=== PATIENT | female | born 1945 | race Caucasian/White ===

== ENCOUNTER 2020-12-17 21:16 | Observation (INO) | payer MEDICARE ==
[~2020-12-17] VITALS: Ht 157.5 cm; Wt 66.0 kg
[2020-12-17] MEDS ORDERED: normal saline 1000ml 1,000 ML IV ONE (21:25)
[2020-12-17] MEDS ORDERED: tranexamic acid 1gm/0.7% sal. 100 ML IV ONE (21:30)
[2020-12-17 21:47] LABS: BASOPHILS % (AUTO) 0.5 % (0-1); EOSINOPHILS # (AUTO) 0.2 X10'3 (0-0.9); EOSINOPHILS % (AUTO) 2.6 % (0-6); HEMOGLOBIN 11.9 g/dl (12.0-16.0); LYMPHOCYTES # (AUTO) 2.9 X10'3 (1.1-4.8); LYMPHOCYTES % (AUTO) 39.8 % (21-51); MEAN CORPUSCULAR HEMOGLOBIN 30.8 PG (27.0-31.0); MEAN CORPUSCULAR VOLUME 90.6 FL (78-98); MEAN PLATELET VOLUME 7.1 FL (7.4-10.4); MONOCYTES # (AUTO) 0.4 X10'3 (0-0.9); MONOCYTES % (AUTO) 5.4 % (2-12); NEUTROPHILS # (AUTO) 3.7 X10'3 (1.8-7.7); NEUTROPHILS % (AUTO) 51.7 % (42-75); PLATELET COUNT 334 X10'3 (140-440); RED BLOOD COUNT 3.86 X10'6 (4.20-5.60); RED CELL DISTRIBUTION WIDTH 13.7 % (11.5-14.5); WHITE BLOOD COUNT 7.2 X10'3 (4.5-11.0)
[2020-12-17 21:53] LABS: PARTIAL THROMBOPLASTIN TIME 21 SECONDS (22-32)
[2020-12-17 22:05] LABS: ALANINE AMINOTRANSFERASE 35 U/L (12-78); ALBUMIN 3.9 G/DL (3.4-5.0); ALBUMIN/GLOBULIN RATIO 1.4 (1.1-1.5); ALKALINE PHOSPHATASE 60 IU/L (46-116); ANION GAP 11 (8-16); ASPARTATE AMINO TRANSFERASE 19 U/L (10-37); BILIRUBIN,TOTAL 0.2 MG/DL (0.1-1.0); BLOOD UREA NITROGEN 17 MG/DL (7-18); BUN/CREATININE RATIO 24.6 (6.6-38.0); CALCIUM 9.1 MG/DL (8.5-10.1); CHLORIDE 106 MMOL/L (99-107); CREATININE 0.69 MG/DL (0.40-0.90); GLUCOSE 137 MG/DL (70-104); LIPASE 126 U/L (73-393); MAGNESIUM 1.8 MG/DL (1.5-2.4); POTASSIUM 3.4 MMOL/L (3.5-5.1); SODIUM 145 MMOL/L (135-145); TOTAL CARBON DIOXIDE 28.3 MMOL/L (24-32); TOTAL PROTEIN 6.7 G/DL (6.4-8.2); eGFR 83 ML/MIN
--- NOTE | 2020-12-17 22:40 | NUR ---
TXA INFUSING AND MIVF NS AT 150/ML HR. AT BEDSIDE. VSS. PT WITH SLIGHT LOW ABD DISCOMFORT REPORTS FEELS LIKE CRAMPING. NOW AWAITING HOSPITALIAST. MED REC COMPLETED. PT ONLY TAKES OTC OMEPROZOLE AND LOSARTAN.
[2020-12-17] MEDS ORDERED: LOSA25TA41 PO (22:42)
[2020-12-17] MEDS ORDERED: OMEP40CA13 PO (22:42)
--- NOTE | 2020-12-17 23:41 | NUR ---
SBA FOR PT TO GET UP TO BSC TO VOID. AWAITING HOSPITALIST. PTS , PAULO, REMAINS AT BEDSIDE. VSS. PT WITH NO DIZZINESS WHEN GETTING UP. REPROTS SHE STILL FEELS WEAK AND HER BELLY IS STILL "GURGLING".
[2020-12-17] MEDS ORDERED: ACET-1025 PO (23:43)
[2020-12-18] MEDS ORDERED: magnesium hydroxide 30ml (MOM) UD suspension PO PRN (00:30)
[2020-12-18] MEDS ORDERED: mag hydrox/Alum hydrox/simeth 30ml oral suspension PO PRN (00:30)
[2020-12-18] MEDS ORDERED: ondansetron/PF 4mg/2ml inj IV PRN (00:30)
[2020-12-18] MEDS ORDERED: acetaminophen 325mg tablet PO PRN (00:30)
[2020-12-18] MEDS: normal saline 1000ml 1,000 ML IV SCH ×3 (02:07→20:30)
--- NOTE | 2020-12-18 02:17 | NUR ---
PT GIVEN TYLENOL FOR HER CHRONIC BACK PAIN (STENOSIS). STATES SHE TAKES 1000 MG HS. AWAITING IPA. HAS GONE HOME FOR THE NIGHT. VSS. PT UP TO BSC INDEPENDANTLY AND WITHOUT DIZZINESS.
--- NOTE | 2020-12-18 05:10 | NUR ---
PT ARRIVED FROM ER AND HAS BEEN ORIENTED TO THE ROOM. VSS. RECEIVED REPORT FROM ALIE PRIOR TO PT'S ARRIVAL.
[2020-12-18 05:46] VITALS: BP 120/56
--- NOTE | 2020-12-18 06:27 | NUR ---
Problems reprioritized. Patient report given, questions answered & plan of care reviewed with MARITZA BRANDT.
[2020-12-18 07:15] VITALS: BP 120/56
[2020-12-18 09:05] LABS: BASOPHILS % (AUTO) 0.7 % (0-1); EOSINOPHILS # (AUTO) 0.1 X10'3 (0-0.9); EOSINOPHILS % (AUTO) 1.6 % (0-6); HEMATOCRIT 35.6 % (35.0-45.0); HEMOGLOBIN 11.9 g/dl (12.0-16.0); LYMPHOCYTES # (AUTO) 1.7 X10'3 (1.1-4.8); LYMPHOCYTES % (AUTO) 33.9 % (21-51); MEAN CORPUSCULAR HEMOGLOBIN 30.1 PG (27.0-31.0); MEAN CORPUSCULAR HGB CONC 33.3 g/dL (33.0-36.5); MEAN CORPUSCULAR VOLUME 90.4 FL (78-98); MEAN PLATELET VOLUME 7.3 FL (7.4-10.4); MONOCYTES # (AUTO) 0.3 X10'3 (0-0.9); MONOCYTES % (AUTO) 6.1 % (2-12); NEUTROPHILS # (AUTO) 2.9 X10'3 (1.8-7.7); NEUTROPHILS % (AUTO) 57.7 % (42-75); PLATELET COUNT 333 X10'3 (140-440); RED BLOOD COUNT 3.94 X10'6 (4.20-5.60); RED CELL DISTRIBUTION WIDTH 14.1 % (11.5-14.5); WHITE BLOOD COUNT 4.9 X10'3 (4.5-11.0)
[2020-12-18 11:17] VITALS: BP 148/68
[2020-12-18] MEDS: losartan 25mg tablet PO SCH (17:11)
--- NOTE | 2020-12-18 18:07 | NUR ---
Problems reprioritized. Patient report given, questions answered & plan of care reviewed with Pradeep RN.
--- NOTE | 2020-12-18 18:30 | NUR ---
Patient in room [facility] 4014. I have received report from Dejon SALAS and had the opportunity to ask questions and assume patient care.
[2020-12-18 22:00] VITALS: BP 139/59
[2020-12-19 06:29] LABS: BASOPHILS % (AUTO) 0.9 % (0-1); EOSINOPHILS # (AUTO) 0.2 X10'3 (0-0.9); EOSINOPHILS % (AUTO) 3.3 % (0-6); HEMATOCRIT 35.5 % (35.0-45.0); LYMPHOCYTES # (AUTO) 2.4 X10'3 (1.1-4.8); LYMPHOCYTES % (AUTO) 41.8 % (21-51); MEAN CORPUSCULAR HEMOGLOBIN 30.5 PG (27.0-31.0); MEAN CORPUSCULAR HGB CONC 33.7 g/dL (33.0-36.5); MEAN CORPUSCULAR VOLUME 90.4 FL (78-98); MEAN PLATELET VOLUME 7.3 FL (7.4-10.4); MONOCYTES # (AUTO) 0.3 X10'3 (0-0.9); MONOCYTES % (AUTO) 5.7 % (2-12); NEUTROPHILS # (AUTO) 2.8 X10'3 (1.8-7.7); NEUTROPHILS % (AUTO) 48.3 % (42-75); PLATELET COUNT 346 X10'3 (140-440); RED BLOOD COUNT 3.93 X10'6 (4.20-5.60); WHITE BLOOD COUNT 5.8 X10'3 (4.5-11.0)
[2020-12-19] MEDS: normal saline 1000ml 1,000 ML IV SCH (06:30)
--- NOTE | 2020-12-19 06:33 | NUR ---
Problems reprioritized. Patient report given, questions answered & plan of care reviewed with Chris SALAS.
[2020-12-19] MEDS: losartan 25mg tablet PO SCH (07:15)
[2020-12-19] MEDS ORDERED: pantoprazole 40mg Tablet.DR PO SCH (07:30)
--- NOTE | 2020-12-20 14:23 | NUR ---
CASE MANAGEMENT DISCHARGE FOLLOW UP: T/c to pt, no answer, left message requesting callback. Addendum: 12/24/20 at 1051 by Renee Villegas RN 12/24/2020@0830 Received VM from patient, left 12/20@2000, stating that she is "doing just fine" and that she appreciated the hospital and care received.
== END 2020-12-19 09:20 | disposition home or self-care (01) ==
LOC: ER 21:16 → ED HOLD 12-18 00:28 → ORTHO 4S 12-18 04:56
PROVIDERS: ADMIT Internal Medicine; ATTEND Internal Medicine
DX: K92.1 Melena (principal); I10 Essential (primary) hypertension; K21.9 Gastro-esophageal reflux disease without esophagitis; I25.10 Atherosclerotic heart disease of native coronary artery without angina pectoris; Z86.010 Personal history of colon polyps; Z90.710 Acquired absence of both cervix and uterus; Z90.49 Acquired absence of other specified parts of digestive tract; Z79.899 Other long term (current) drug therapy; Z88.0 Allergy status to penicillin; Z91.040 Latex allergy status
CPT/HCPCS: 36415; 80053; 83690; 83735; 84484; 85025; 85610; 85730; 86885; 86900; 86901; 87081; 93005; 96361; 96365; 99284; G0378; J7030

== ENCOUNTER 2021-05-31 10:20 | Emergency (ER) | payer MEDICARE ==
[~2021-05-31] VITALS: Ht 157.5 cm; Wt 60.0 kg
[~2021-05-31 10:20] MED LIST: ACET-1025 PO; LOSA25TA41 PO; OMEP40CA21 PO
[2021-05-31 10:43] VITALS: BP 156/72
[2021-05-31] MEDS ORDERED: ACET-1025 PO (14:57)
== END 2021-05-31 16:09 | disposition home or self-care (01) ==
LOC: ER 10:21
DX: M25.532 Pain in left wrist (principal); I10 Essential (primary) hypertension; K21.9 Gastro-esophageal reflux disease without esophagitis; Z90.49 Acquired absence of other specified parts of digestive tract; Z88.0 Allergy status to penicillin; Z91.040 Latex allergy status; Z79.899 Other long term (current) drug therapy
CPT/HCPCS: 29125; 73100; 99283

== ENCOUNTER 2023-03-21 22:18 | Emergency (ER) | payer MEDICARE ==
[~2023-03-21] VITALS: Ht 157.5 cm; Wt 65.9 kg
[2023-03-21 22:42] VITALS: TEMP 97.8
[2023-03-21 22:48] LABS: BASOPHILS % (AUTO) 0.7 % (0-1); EOSINOPHILS # (AUTO) 0.3 X10'3 (0-0.9); EOSINOPHILS % (AUTO) 4.7 % (0-6); HEMATOCRIT 37.9 % (35.0-45.0); HEMOGLOBIN 12.7 g/dl (12.0-16.0); LYMPHOCYTES # (AUTO) 2.6 X10'3 (1.1-4.8); LYMPHOCYTES % (AUTO) 37.3 % (21-51); MEAN CORPUSCULAR HEMOGLOBIN 29.3 PG (27.0-31.0); MEAN CORPUSCULAR HGB CONC 33.5 g/dL (33.0-36.5); MEAN CORPUSCULAR VOLUME 87.6 FL (78-98); MEAN PLATELET VOLUME 7.5 FL (7.4-10.4); MONOCYTES # (AUTO) 0.5 X10'3 (0-0.9); MONOCYTES % (AUTO) 7.5 % (2-12); NEUTROPHILS # (AUTO) 3.5 X10'3 (1.8-7.7); NEUTROPHILS % (AUTO) 49.8 % (42-75); PLATELET COUNT 303 X10'3 (140-440); RED BLOOD COUNT 4.33 X10'6 (4.20-5.60); RED CELL DISTRIBUTION WIDTH 13.7 % (11.5-14.5); WHITE BLOOD COUNT 6.9 X10'3 (4.5-11.0)
[2023-03-21 23:44] LABS: ALANINE AMINOTRANSFERASE 35 U/L (12-78); ALBUMIN/GLOBULIN RATIO 1.3 (1.1-1.5); ALKALINE PHOSPHATASE 66 IU/L (46-116); ANION GAP 12 (8-16); ASPARTATE AMINO TRANSFERASE 20 U/L (10-37); BILIRUBIN,TOTAL 0.3 MG/DL (0.1-1.0); BLOOD UREA NITROGEN 22 MG/DL (7-18); BUN/CREATININE RATIO 28.6 (10.0-20.0); CALCIUM 9.5 MG/DL (8.5-10.1); CHLORIDE 105 MMOL/L (99-107); CREATININE 0.77 MG/DL (0.40-0.90); GLUCOSE 115 MG/DL (70-104); POTASSIUM 3.8 MMOL/L (3.5-5.1); SODIUM 141 MMOL/L (135-145); TOTAL CARBON DIOXIDE 24.3 MMOL/L (24-32); TOTAL PROTEIN 7.1 G/DL (6.4-8.2); eGFR 73 ML/MIN
[2023-03-22 04:43] VITALS: BP 155/68; PULSE 58; RESP 16; O2SAT 96
== END 2023-03-22 04:45 | disposition home or self-care (01) ==
LOC: ER 22:19
DX: R07.9 Chest pain, unspecified (principal); I10 Essential (primary) hypertension; R51.9 Headache, unspecified; K21.9 Gastro-esophageal reflux disease without esophagitis; Z90.49 Acquired absence of other specified parts of digestive tract; Z88.0 Allergy status to penicillin; Z91.040 Latex allergy status; Z79.899 Other long term (current) drug therapy; Z79.1 Long term (current) use of non-steroidal anti-inflammatories (NSAID); Z79.2 Long term (current) use of antibiotics
CPT/HCPCS: 36415; 71045; 80053; 83880; 84484; 85025; 93005; 99285

== ENCOUNTER 2024-10-24 09:06 | Emergency (ER) | payer OTHER ==
[~2024-10-24] VITALS: Ht 157.5 cm; Wt 64.8 kg
[~2024-10-24 09:06] MED LIST changes: +ASPI-1071 PO; +ATOR20TA66 PO; +CARV-164 PO
[2024-10-24] MEDS: aspirin 81mg tab.chew PO ONE (09:54)
[2024-10-24 10:09] LABS: BASOPHILS % (AUTO) 0.5 % (0-1); EOSINOPHILS # (AUTO) 0.1 X10'3 (0-0.9); EOSINOPHILS % (AUTO) 1.5 % (0-6); HEMATOCRIT 41.9 % (35.0-45.0); LYMPHOCYTES % (AUTO) 32.7 % (21-51); MEAN CORPUSCULAR HEMOGLOBIN 29.4 PG (27.0-31.0); MEAN CORPUSCULAR HGB CONC 33.4 g/dL (33.0-36.5); MEAN CORPUSCULAR VOLUME 87.9 FL (78-98); MEAN PLATELET VOLUME 7.9 FL (7.4-10.4); MONOCYTES # (AUTO) 0.4 X10'3 (0-0.9); MONOCYTES % (AUTO) 6.2 % (2-12); NEUTROPHILS # (AUTO) 3.6 X10'3 (1.8-7.7); NEUTROPHILS % (AUTO) 59.1 % (42-75); PLATELET COUNT 283 X10'3 (140-440); RED BLOOD COUNT 4.76 X10'6 (4.20-5.60); RED CELL DISTRIBUTION WIDTH 14.1 % (11.5-14.5); WHITE BLOOD COUNT 6.1 X10'3 (4.5-11.0)
[2024-10-24 10:45] LABS: ALANINE AMINOTRANSFERASE 24 U/L (12-78); ALBUMIN 4.4 G/DL (3.4-5.0); ALBUMIN/GLOBULIN RATIO 1.2 (1.1-1.5); ALKALINE PHOSPHATASE 64 IU/L (46-116); ANION GAP 11 (8-16); ASPARTATE AMINO TRANSFERASE 20 U/L (10-37); BILIRUBIN,TOTAL 0.8 MG/DL (0.1-1.0); BLOOD UREA NITROGEN 15 MG/DL (7-18); BUN/CREATININE RATIO 25.9 (10.0-20.0); CALCIUM 9.1 MG/DL (8.5-10.1); CHLORIDE 106 MMOL/L (99-107); CREATININE 0.58 MG/DL (0.40-0.90); GLUCOSE 107 MG/DL (70-104); POTASSIUM 3.6 MMOL/L (3.5-5.1); SODIUM 144 MMOL/L (135-145); eCRCL 62 ML/MIN; eGFR > 90 ML/MIN
[2024-10-24 10:52] LABS: PRO BRAIN NATRIURETIC PEPTIDE 366 PG/ML (0-450)
[2024-10-24] MEDS ORDERED: NITR0.4T51 SL (18:54)
[2024-10-24] MEDS ORDERED: ASPI81TA52 PO (18:54)
[2024-10-24] MEDS: acetaminophen 325mg tablet PO ONE (19:03)
[2024-10-24 19:08] VITALS: BP 140/97; PULSE 62; RESP 14; TEMP 98; O2SAT 100
== END 2024-10-24 19:10 | disposition home or self-care (01) ==
LOC: ER 09:06
DX: R07.9 Chest pain, unspecified (principal); E78.00 Pure hypercholesterolemia, unspecified; I10 Essential (primary) hypertension; K21.9 Gastro-esophageal reflux disease without esophagitis; Z88.0 Allergy status to penicillin; Z90.49 Acquired absence of other specified parts of digestive tract; Z79.82 Long term (current) use of aspirin
CPT/HCPCS: 36415; 71045; 80053; 83880; 84484; 85025; 93005; 99285

== ENCOUNTER 2025-06-17 21:41 | Emergency (ER) | payer OTHER ==
[~2025-06-17] VITALS: Ht 157.5 cm; Wt 67.6 kg
--- NOTE | 2025-06-17 22:16 | Physician Documentation ---
History of Present Illness ~ Chief Complaint: Headache Stated Complaint: HEADACHE WITH HIGH BP Time Seen by MD: 22:10 Primary Medical Doctor: Bart Olivas HPI 79-year-old female presenting with a headache. The patient reportedly had an MRI recently that showed an aneurysm in her brain. This was an outpatient study and is not in our system. She tells me that she developed a headache this evening. She states it is left- sided. She has associated intermittent dizziness. She also reports a history of peripheral vertigo, and states that the dizziness is worse with certain head positional changes. By time of my evaluation, her headache has improved. She states that it has moved to the right side of her head. She also tells me that she has macular degeneration in the right eye and has been getting injections to her eye. No vomiting. No tingling numbness weakness in her extremities. No fevers or other infectious type symptoms. No head injury. No history of migraines or other significant headache types. She did take Tylenol. Medication Reconciliation Allergies: Coded Allergies: Penicillins (Verified Allergy, Unknown, 10/24/24) latex (Verified Adverse Reaction, Intermediate, RASH TO SKIN, 10/24/24) Scheduled Aspirin (Ecotrin*), 1 TAB PO DAILY Atorvastatin Calcium (Atorvastatin Calcium), 20 MG PO DAILY Carvedilol (Carvedilol), 3.125 MG PO BID Losartan Potassium (Losartan Potassium), 50 MG PO DAILY Meclizine Hcl (Meclizine Hcl), 1 TAB PO Q8H Omeprazole (Prilosec), 20 MG PO DAILY, (Reported) Scheduled PRN Acetaminophen (Tylenol Extra Strength), 1 TAB PO Q8H PRN for mild to moderate pain 1-6 Past Medical History Past Medical History: *CARDIOVASCULAR*, High Cholesterol, Hypertension, GERD Past Surgical History: cholecystectomy, other Alcohol Use: None Drug Use: none Lives with: Spouse Lives In: Home Occupation: retired Review of Systems Constitutional: Denies: fever Neurological: Reports: headache, dizziness Physical Exam Vital Signs: Temperature: 98.4, Heart Rate: 94, Respiratory Rate: 16, BP: 199/70, Pulse Oximetry: 98, Weight: 67.600 Oxygen Flow Rate: 0 Physical Exam General: This is a pleasant and overall well-appearing elderly woman, at bedside HEENT: Atraumatic, oropharynx is moist Heart: Regular rate and rhythm, normal-appearing peripheral perfusion Lungs: normal work of breathing, normal oxygen saturation on room air Neuro: Alert and oriented, cranial nerves 2-12 appear grossly intact except for some mild reported visual changes to the right eye which are not acute. No facial droop. Speech is clear. Normal strength and sensation all 4 extremities. Psychiatric: Appears mildly anxious about her condition, but is cooperative with exam Progress Results/Orders Results/Orders Orders - ALESIA MELENDEZ MD Ct Head (06/17/25 22:20) Cta Neck/Head (06/17/25 22:30) Completed Orders - ALESIA MELENDEZ MD Ct Head (06/17/25 22:20) Cta Neck/Head (06/17/25 22:30) Cbc/Diff (06/17/25 22:20) BMP (06/17/25 22:20) PTT (06/17/25 22:20) Pt Inr (06/17/25 22:20) Meclizine Tablets (Antivert Tablet) (06/18/25 00:30) Vital Signs 06/17/25 06/17/25 06/17/25 06/17/25 21:43 22:02 22:02 22:46 Temp 98.4 Pulse 94 84 91 Resp 16 18 16 26 B/P (MAP) 199/70 188/81 (116) 153/61 (91) Pulse Ox 98 97 99 O2 Flow Rate 0 0 0 06/18/25 00:18 Pulse 84 Resp 18 B/P (MAP) 138/76 (96) Pulse Ox 98 Laboratory Tests Test 06/17/25 22:12 White Blood Count 7.3 Red Blood Count 4.27 Hemoglobin 12.6 Hematocrit 37.4 Mean Corpuscular Volume 87.6 Mean Corpuscular Hemoglobin 29.4 Mean Corpuscular Hemoglobin Concent 33.6 Red Cell Distribution Width 13.6 Platelet Count 346 Mean Platelet Volume 7.7 Neutrophils (%) (Auto) 50.6 Lymphocytes (%) (Auto) 38.8 Monocytes (%) (Auto) 7.4 Eosinophils (%) (Auto) 2.5 Basophils (%) (Auto) 0.7 Neutrophils # (Auto) 3.7 Lymphocytes # (Auto) 2.8 Monocytes # (Auto) 0.5 Eosinophils # (Auto) 0.2 Basophils # (Auto) 0.1 CBC Comment Prothrombin Time 10.4 INR International Normalized Ratio 1.0 Activated Partial Thromboplast Time 25 Coagulation Comments Sodium Level 142 Potassium Level 3.5 Chloride Level 105 Carbon Dioxide Level 29.6 Anion Gap 7 L Blood Urea Nitrogen 23 H Creatinine 0.70 Estimated GFR/1.73 m2 81 BUN/Creatinine Ratio 32.9 H Glucose Level 133 H Calcium Level 8.8 Albumin 3.8 Chemistry Comments EKG/XRAY/CT/US/VASC/MRI CT : Impression I personally interpreted the CT scan, and this shows no acute intracranial hemorrhage. Radiology report says no large aneurysm Medical Decision Making Additional information obtaine: N/A Findings na Differential Dx:Considerations: Include: SHEPHERD-Cluster, SHEPHERD-Migraine, SHEPHERD- Hypertensive, SHEPHERD-Muscular contraction, CVA, Hemorrhage-Subarachnoid Additional Comment The patient presents with a headache. She reports a history of recent MRI that showed an aneurysm. On my exam she does not have any significant focal neurologic deficits. CT scan shows no intracranial hemorrhage. CTA without any acute vascular changes, in the radiology report does not remark on an aneurysm. Overall, no dangerous cause identified for her symptoms. She was given a dose of meclizine for her peripheral vertigo. She has outpatient follow-up already in place for all of her chronic issues including her eye, vertigo, and possible aneurysm on the MRI. I feel she is safe for discharge home at this time. Return precautions given. Departure Time of Disposition: 00:48 Disposition: 01 HOME / SELF CARE / HOMELESS Impression: Primary Impression: Headache Condition: Stable Discharge Instructions: Headache Referrals: NO PRIMARY CARE PROVIDER (PCP) Prescriptions Meclizine Hcl (MECLIZINE HCL) 12.5 Mg Tablet 1 TAB PO Q8H for dizziness for 10 Days, #30 TAB 0 Refills Prov: ALESIA MELENDEZ MD 06/18/25 Education Educated: Patient, Family Educated regarding: diagnosis, treatment, need for follow up Signature Scribe Signature: na Attestation: ALESIA Reyes MD Jun 17, 2025 22:16
[2025-06-17 22:38] LABS: MEAN PLATELET VOLUME 7.7 FL (7.4-10.4); RED CELL DISTRIBUTION WIDTH 13.6 % (11.5-14.5)
[2025-06-17 22:42] LABS: CREATININE 0.70 MG/DL (0.40-0.90); TOTAL CARBON DIOXIDE 29.6 MMOL/L (24-32); eCRCL 51 ML/MIN; eGFR 81 ML/MIN
--- NOTE | 2025-06-17 22:45 | RADIOLOGY REPORT ---
CT CT HEAD INDICATION: HEADACHE, HX OF ANEURYSM, HIGH BP COMPARISON: None TECHNIQUE: CT of the head without intravenous contrast. RADIATION DOSE: CTDIvol: mGy, DLP: mGy*cm FINDINGS: No evidence of intracranial hemorrhage, infarct, extra-axial collection, mass effect, midline shift, herniation or hydrocephalus. Ventricles, sulci and cisterns are normal. Visualized paranasal sinuses and mastoid air cells are clear. Soft tissues and osseous structures are unremarkable. IMPRESSION: No intracranial abnormality identified.
[2025-06-17 22:47] LABS: APTT 25 SECONDS (22-32); INR 1.0 INR
--- NOTE | 2025-06-18 00:38 | RADIOLOGY REPORT ---
INDICATION: severe headache, hx aneurysm COMPARISON: CT CT HEAD on DOS: 06/17/25 TECHNIQUE: CTA head without and with intravenous contrast. CTA neck with intravenous contrast. 3D image postprocessing was performed on a dedicated workstation and images were used for interpretation and reporting. Radiation Dose Information: CT Dose: CTDI volume is 33.14 mGy. Dose-length product is 913.76 mGy*cm FINDINGS: CT head: There is no evidence of acute intracranial hemorrhage, extra-axial collection, mass effect, midline shift, herniation or hydrocephalus. The ventricles, sulci and cisterns are age appropriate. The noland-white differentiation is intact. The visualized paranasal sinuses and mastoid air cells are clear. The surrounding soft tissues and osseous structures are unremarkable. CTA head: There is normal enhancement of the visualized distal internal carotid, anterior and middle cerebral arteries. There is a normal anterior communicating artery complex. There are bilateral posterior communicating arteries. The vertebral, basilar, cerebellar and posterior cerebral arteries are within normal limits. The early parenchymal enhancement is grossly unremarkable. The visualized intracranial venous structures are grossly unremarkable. CTA neck: The visualized thoracic aortic arch and proximal great vessels are unremarkable. Calcified atheromatous plaque within the origin of the left internal carotid artery resulting in less than 10% stenosis. The left common, internal and external carotid arteries are otherwise within normal limits. The right common, internal and external carotid arteries are within normal limits. The cervical segments of the right and left vertebral arteries are within normal limits. The limited visualized lung apices are clear. The surrounding soft tissues and osseous structures are otherwise unremarkable. IMPRESSION: 1. No evidence of acute intracranial hemorrhage, mass effect or hydrocephalus. 2. No evidence of hemodynamically significant intracranial stenosis, proximal occlusion or aneurysm. 3. No evidence of hemodynamically significant cervical stenosis or dissection. 4. Less than 10% estimated stenosis of the origin of the left internal carotid artery mid in association with Atherosclerotic vascular calcifications. All CT scans at this medical facility are performed using dose modulation techniques as appropriate to a performed exam including the following: Automated exposure control was utilized; adjustment of the MA and/or KV according to patient size; and use of iterative reconstruction technique.
[2025-06-18] MEDS ORDERED: MECL-231 PO (00:52)
[2025-06-18 01:03] VITALS: BP 136/80; PULSE 70; RESP 18; TEMP 98.1; O2SAT 99
== END 2025-06-18 01:05 | disposition home or self-care (01) ==
LOC: ER 21:43
DX: R51.9 Headache, unspecified (principal); R42 Dizziness and giddiness; E78.00 Pure hypercholesterolemia, unspecified; K21.9 Gastro-esophageal reflux disease without esophagitis; I10 Essential (primary) hypertension; Z88.0 Allergy status to penicillin; Z91.040 Latex allergy status; Z90.49 Acquired absence of other specified parts of digestive tract; Z79.82 Long term (current) use of aspirin; Z79.899 Other long term (current) drug therapy
CPT/HCPCS: 36415; 70450; 70496; 70498; 80048; 85025; 85610; 85730; 99285; J8597; Q9967